=== PATIENT | male | born 1990 | race Caucasian/White ===

== ENCOUNTER 2023-08-03 09:16 | Emergency (ER) | payer OTHER ==
[~2023-08-03] VITALS: Ht 190.5 cm; Wt 71.2 kg
[2023-08-03 09:39] VITALS: BP 134/92; PULSE 115; RESP 16; TEMP 99.1; O2SAT 100
[2023-08-03] MEDS ORDERED: ACET-8905 PO (11:09)
[2023-08-03] MEDS ORDERED: CYCL10TA33 PO (11:09)
[2023-08-03 11:32] VITALS: BP 120/64; PULSE 76; RESP 18; TEMP 98.3; O2SAT 97
== END 2023-08-03 11:33 | disposition home or self-care (01) ==
LOC: MED 09:16
DX: M54.2 Cervicalgia (principal); Z79.1 Long term (current) use of non-steroidal anti-inflammatories (NSAID); Z79.82 Long term (current) use of aspirin; Z79.899 Other long term (current) drug therapy
CPT/HCPCS: 99281